=== PATIENT | female | born 1990 | race Caucasian/White ===

== ENCOUNTER 2024-05-18 22:37 | Emergency (ER) | payer OTHER, SELFPAY ==
[2024-05-18 22:41] VITALS: BP 148/112
[2024-05-18] MEDS: DELTASONE 40 MG PO (23:46)
[2024-05-18 23:47] VITALS: BP 151/84
[2024-05-18 23:48] VITALS: BP 151/84
--- NOTE | 2024-05-19 00:36 | ED.SKININJ ---
HPI-Injury
General
Chief Complaint: Skin Problem
Source: patient
Exam Limitations: none
Time Seen by Provider: 05/18/24 23:00
Nursing documentation reviewed up to this point in time: agreed with
History of Present Illness-Injury
Is this injury a work related problem?: No
Is pt an associate of [facility]/[place]?: No
Initial Injury comments:
Patient to ED wtih complaint of redness and itching to right foot. Symptoms started last PM. States she felt like she was bit by something while sitting outside. Noticed welts initially to right medial ankle and left lat foot. Today erythema and
itching have worsened. No fever/chills. Reports prior episodes of this type of reaction to insect bites.
Past History
Past History
ED Past Medical History: None
ED Past Surgical History: None
Review of Systems
Review of Systems
Allergies reviewed?: Yes
All Other Systems: ROS reviewed and negative except as documented in HPI and ROS
Constitutional: Reports no symptoms
Musculoskeletal: Reports joint swelling (swelling redness itching right foot.)
Skin: Reports other (erythema, swelling, itching to right foot.)
Psychiatric: Reports no symptoms
Skin Exam
Bite
Right Foot:
Type: insect/spider
Surrounding area around bite has: area of erythema/swelling
Distal skin color and temperature: normal-warm & good color
Normal distal neurovascular exam: Yes
Phy Exam
General Physical Exam
General Presentation: well appearing and no apparent distress
General age: appears stated age
General Skin: warm and dry
General Habitus: normal
General Mental: alert
Musculoskeletal Exam
Musculoskeletal Exam: full ROM and neuro vasc intact
Skin Exam
Skin Exam: warm/dry and other (erythema swelling and redness to right foot consistent with infammatory response from insect bite. No drainage. Neurovascularly intact)
Psychiatric Exam
Psychiatric Exam: normal mood/affect
Course
Orders/Labs/Results
Orders:
Orders
05/18/24 23:32
Prednisone [Deltasone] 40 mg PO NOW STA
Vital Signs
Initial and Last Documented VS:
Initial Vital Signs
Temp Pulse Resp BP Pulse Ox
98.3 F 94 20 148/112 98
05/18/24 22:41 05/18/24 22:41 05/18/24 22:41 05/18/24 22:41 05/18/24 22:41
Last Documented Vital Signs
Temp Pulse Resp BP Pulse Ox
98.3 F 97 20 151/84 98
05/18/24 22:41 05/18/24 23:48 05/18/24 23:48 05/18/24 23:48 05/18/24 22:41
*Critical Care Note
Total Time (30-74mins, 75-104mins- exclusive of procedures): Not Applicable
Update Note
Update Note:
Will place on prednisone taper. Continue to ice nd elevate. Given rx at her request if symtpoms do not improve over the next 2 days. SHe was given instructions on s/s to return to ED and she is agreeble to plan.
ED Attending Note
-
Portions of this chart may have been created with voice recognition software.� Occasional wrong word or��sound alike� substitutions may have occurred due to the inherent limitations of voice recognition software.
Discharge Plan
Departure
Patient Disposition: Home (Routine Discharge)
Date of Disposition: 05/18/24
Time of Disposition: 23:32
Patient with high blood pressure during this ER visit?: No
Condition: Good
Covid-19: Not Applicable
Discharge Problem:
Insect bite
Instructions: Using Cold for Pain, Insect Bites and Stings ED
Prescriptions:
New
prednisone 10 mg Tablet
See Rx Instructions .ROUTE .COMPLEX Qty: 30 0RF
Rx Instructions:
Take By Mouth:
40 mg daily x3 days, 30 mg daily x3 days,
20 mg daily x3 days, 10 mg daily x3 days.
cephalexin 500 mg capsule
500 mg PO TID 7 Days Qty: 21 0RF
No Action
prenat.vits,johnathon,[id number] Tablet
1 tab PO DAILY
Zyrtec 10 mg Capsule
10 mg PO DAILY
acetaminophen 325 mg Tablet
650 mg PO Q4HPRN PRN (Reason: mild pain) Qty: 0 0RF
ibuprofen 600 mg Tablet
600 mg PO Q6HPRN PRN (Reason: cramps) Qty: 0 0RF
Referrals:
Genesis Tovar CRNP [Family Provider] - Follow up in 2-3 days
Activity Restrictions/Additional Instructions:
Return to the emergency department for feve/chills, increasing pain, or for any further concerns.
Interventions
Interventions:
*Risk Screen - Suicide Last Done: 05/18/24 22:41
*General Assessment Last Done: 05/18/24 22:41
*Neglect/Abuse Screening Last Done: 05/18/24 22:41
*Nursing Disposition Last Done: 05/18/24 23:48
ED-Skin Assessment Last Done: 05/18/24 23:23
Discharge Date and Time
Discharge Date/Time: 05/18/24 23:49
Print Language: [place]
== END 2024-05-18 23:49 | disposition home or self-care (01) ==
LOC: EMR 22:37
PROVIDERS: EMERGENCY PHYSICIAN Emergency Medicine; FAMILY PHYSICIAN Nurse Practitioner Adult Health
DX: S90.861A Insect bite (nonvenomous), right foot, initial encounter (principal); W57.XXXA Bitten or stung by nonvenomous insect and other nonvenomous arthropods, initial encounter
CPT/HCPCS: 99283

== ENCOUNTER 2024-09-05 21:12 | Emergency (ER) | payer OTHER, SELFPAY ==
[2024-09-05 21:12] VITALS: BMI 28.0
[2024-09-05 21:17] VITALS: BP 145/100
[2024-09-05 21:36] LABS: % Basophils 0.4 % (0-2); % Eosinophils 1.4 % (0-6); % Immature Granulocytes 0.4 % (0-0.5); % Lymphocytes 25.4 % (20.5-51.1); % Monocytes 3.3 % (1.7-9.3); % Neutrophils 69.1 % (42.2-75.2); Absolute Basophils 0.1 10^3/uL (0-0.2); Absolute Eosinophils 0.3 10^3/uL (0-0.7); Absolute Immature Granulocytes 0.1 10^3/uL (0-0.05); Absolute Lymphocytes 5.2 10^3/uL (1.2-3.4); Absolute Monocytes 0.7 10^3/uL (0.1-0.6); Absolute Neutrophils 14.3 10^3/uL (1.4-6.5); Hematocrit 39.4 % (37.0-47.0); Hemoglobin 13.5 g/dL (12.0-16.0); Mean Corp Hgb Conc. 34.3 g/dL (33.0-37.0); Mean Corpuscular Hgb 30.4 pg (27.0-31.0); Mean Corpuscular Volume 88.7 fL (81.0-99.0); Mean Platelet Volume 9.2 fL (7.4-10.4); Nucleated Red Blood Cells % 0 %; Platelet Count 333 10^3/uL (130-400); Red Blood Cell Count 4.44 10^6/uL (4.20-5.40); Red Cell Dist. Width 11.6 % (11.5-14.5); White Blood Cell Count 20.6 10^3/uL (4.8-10.8)
[2024-09-05 21:44] LABS: HCG, Serum Qualitative Screen Negative
[2024-09-05 21:50] LABS: ALT (SGPT) 16 U/L (0-35); AST (SGOT) 20 U/L (14-36); Albumin 4.5 g/dl (3.5-5.0); Alkaline Phosphatase 66 U/L (38-126); Blood Urea Nitrogen 10 mg/dl (7-17); Calcium 9.7 mg/dl (8.4-10.2); Carbon Dioxide 25 mmol/L (22-30); Chloride 102 mmol/L (98-107); Glucose 103 mg/dl (70-99); Lipase 73 U/L (23-300); Sodium 137 mmol/L (135-145); Total Bilirubin 0.7 mg/dl (0.2-1.3); Total Protein 7.1 g/dl (6.3-8.2); eGFR > 60.00
[2024-09-05 22:03] LABS: Urine Albumin Negative (Neg - Trace); Urine Bilirubin Negative (Negative); Urine Character Clear (Clear); Urine Color Yellow; Urine Glucose Negative (Negative); Urine Ketone Negative (Negative); Urine Leukocyte Negative (Negative); Urine Nitrite Negative (Negative); Urine Occult Blood Trace (Negative); Urine Specific Gravity 1.025 (<1.030); Urine Urobilinogen Negative (Neg - 1+)
[2024-09-05 22:35] LABS: Urine Red Blood Cell 0-2 /HPF (0-2); Urine White Cell 0-2 /HPF (0-5)
--- NOTE | 2024-09-05 23:55 | ED.GENMED ---
History of Present Illness
<Ihsan Ayers DO - Last Filed: 09/06/24 01:20>
General
Chief Complaint: Abdominal Pain
Source: patient and spouse
Exam Limitations: none
Time Seen by Provider: 09/05/24 23:20
Nursing documentation reviewed up to this point in time: agreed with
History of Present Illness
History of Present Illness:
33-year-old female presents with right lower abdominal pain described as a pressure mildly sharp, did do a abdominal workout earlier this evening, has had a previously, states it felt like menstrual cycle pains, her cycle has not started
recently, she is hungry no prior abdominal surgery
Past History
<Ihsan Ayers DO - Last Filed: 09/06/24 01:20>
Past History
ED Past Medical History: None
ED Past Surgical History:
Social History
Tobacco: Non-smoker
Alcohol: None
Drug: None
Personal:
Living: with family
Employment: Employed
Review of Systems
<Ihsan Ayers DO - Last Filed: 09/06/24 01:20>
Review of Systems
All Other Systems: Not applicable
Constitutional: Denies fever or fatigue
EENT: Reports no symptoms
Respiratory: Reports no symptoms
Cardiac: Reports no symptoms
ABD/GI: Reports abdominal pain; Denies nausea, constipated or anorexia
: Reports no symptoms
Musculoskeletal: Reports no symptoms
Phy Exam
<Ihsan Ayers DO - Last Filed: 09/06/24 01:20>
Physical Exam
Physical Exam:
Physical Exam
General: no apparent distress, not acutely ill
Neck: No jaundice
Heart: s1/s2 regular rate and rhythm, no murmur. equal radial pulses.
Lungs: no acute respiratory distress. clear bilaterally
Abdomen: Soft, mild tenderness in the right lower
Neuro: alert and oriented. no focal neurological deficits
Skin: no rash
Psychiatric: well kept. interactive and cooperative
Extremities: no edema.
Course
<Ihsan Ayers, DO - Last Filed: 09/06/24 01:20>
Orders/Labs/Results
Orders:
Orders
09/05/24 21:21
IV Insert/Care/Rem.- Treatment PRN
Straight cath- Treatment ONCE
Test Result ONCE
09/05/24 21:27
Complete Blood Count/With Diff Urgent
Comprehensive Metabolic Panel Urgent
HCG, Serum Qualitative Screen Urgent
Comment: Notify provider if positive test present
Lipase Urgent
Urinalysis Reflex To Culture Urgent
Date Specimen was Collected: 09/05/24
Time Specimen was Collected: 21:21
Urine Microscopic Reflex Cult Urgent
09/05/24 23:34
Ketorolac [Toradol] 30 mg IV NOW STA
09/06/24 00:00
US Pelvis Only (non-obstetric) Urgent
Reason For Exam: r sided pain
09/06/24 00:20
CT Abd/Pel (IV only)-DH only Urgent
Reason For Exam: r lq pain
09/06/24 01:18
Ketorolac [Toradol] 30 mg IV NOW STA
09/06/24 02:52
Acetaminophen [Tylenol] 1,000 mg PO NOW STA
Abnormal Lab Results
09/05/24
21:27
WBC 20.6 H 10^3/uL
(4.8-10.8)
Abs Immat Gran (auto) 0.1 H 10^3/uL
(0-0.05)
Absolute Neuts (auto) 14.3 H 10^3/uL
(1.4-6.5)
Absolute Lymphs (auto) 5.2 H 10^3/uL
(1.2-3.4)
Absolute Monos (auto) 0.7 H 10^3/uL
(0.1-0.6)
Glucose 103 H mg/dl
(70-99)
Ur Occult Blood Reflex Trace A
(Negative)
09/05/24 21:27
09/05/24 21:27
Vital Signs
Initial and Last Documented VS:
Initial Vital Signs
Temp Pulse Resp BP Pulse Ox
98 F 98 20 145/100 100
09/05/24 21:17 09/05/24 21:17 09/05/24 21:17 09/05/24 21:17 09/05/24 21:17
Last Documented Vital Signs
Temp Pulse Resp BP Pulse Ox
98 F 125 27 141/84 98
09/05/24 21:17 09/06/24 01:15 09/06/24 01:15 09/06/24 01:00 09/05/24 21:17
<PHILL Valiente - Last Filed: 09/06/24 03:01>
Orders/Labs/Results
Orders:
Orders
09/05/24 21:21
IV Insert/Care/Rem.- Treatment PRN
Straight cath- Treatment ONCE
Test Result ONCE
09/05/24 21:27
Complete Blood Count/With Diff Urgent
Comprehensive Metabolic Panel Urgent
HCG, Serum Qualitative Screen Urgent
Comment: Notify provider if positive test present
Lipase Urgent
Urinalysis Reflex To Culture Urgent
Date Specimen was Collected: 09/05/24
Time Specimen was Collected: 21:21
Urine Microscopic Reflex Cult Urgent
09/05/24 23:34
Ketorolac [Toradol] 30 mg IV NOW STA
09/06/24 00:00
US Pelvis Only (non-obstetric) Urgent
Reason For Exam: r sided pain
09/06/24 00:20
CT Abd/Pel (IV only)-DH only Urgent
Reason For Exam: r lq pain
09/06/24 01:18
Ketorolac [Toradol] 30 mg IV NOW STA
09/06/24 02:52
Acetaminophen [Tylenol] 1,000 mg PO NOW STA
Abnormal Lab Results
09/05/24
21:27
WBC 20.6 H 10^3/uL
(4.8-10.8)
Abs Immat Gran (auto) 0.1 H 10^3/uL
(0-0.05)
Absolute Neuts (auto) 14.3 H 10^3/uL
(1.4-6.5)
Absolute Lymphs (auto) 5.2 H 10^3/uL
(1.2-3.4)
Absolute Monos (auto) 0.7 H 10^3/uL
(0.1-0.6)
Glucose 103 H mg/dl
(70-99)
Ur Occult Blood Reflex Trace A
(Negative)
09/05/24 21:27
09/05/24 21:27
Vital Signs
Initial and Last Documented VS:
Initial Vital Signs
Temp Pulse Resp BP Pulse Ox
98 F 98 20 145/100 100
09/05/24 21:17 09/05/24 21:17 09/05/24 21:17 09/05/24 21:17 09/05/24 21:17
Last Documented Vital Signs
Temp Pulse Resp BP Pulse Ox
98 F 125 27 141/84 98
09/05/24 21:17 09/06/24 01:15 09/06/24 01:15 09/06/24 01:00 09/05/24 21:17
<Ihsan Ayers, DO - Last Filed: 09/06/24 01:20>
MDM/Problems Addressed
Differential Diagnosis Includes:
Muscle strain overuse appendicitis ovarian pathology ectopic UTI stone
<Ihsan Ayers DO - Last Filed: 09/06/24 01:20>
*Radiology
Radiology exam reviewed: radiology read reviewed
*Pulse Oximetry
Patient hypoxic: no
*Critical Care Note
Total Time (30-74mins, 75-104mins- exclusive of procedures): Not Applicable
<PHILL Valiente - Last Filed: 09/06/24 03:01>
*Radiology
Radiology exam reviewed: radiology read reviewed (US-[facility] ha[facility]- No acute findings. Uterus appears normal. No focal uterine mass. Endometrial complex measures 4-5mm in thickness. No appreciable abnormal endometrial doppler vascularity. Bilateral
ovaries appear normal with Doppler blood flow demonstrated bilaterally. No adnexal mass. ) and all reviewed NAD by ED Provider (US cont- No pelvic free fluid)
<Ihsan Ayers DO - Last Filed: 09/06/24 01:20>
Update Note
Update Note:
Update labs noted CAT scan noted report noted no obvious pathology, patient did not want any Toradol earlier but she states that feels menstrual cramps, will proceed with ultrasound
ED Attending Note
<Ihsan Ayers DO - Last Filed: 09/06/24 01:20>
-
Portions of this chart may have been created with voice recognition software.� Occasional wrong word or��sound alike� substitutions may have occurred due to the inherent limitations of voice recognition software.
Discharge Plan
Departure
Patient Disposition: Home (Routine Discharge)
Date of Disposition: 09/06/24
Time of Disposition: 02:55
Patient with high blood pressure during this ER visit?: No
Condition: Good
Covid-19: Not Applicable
Discharge Problem:
Abdominal pain
Instructions: Abdominal Pain
Prescriptions:
New
ibuprofen 600 mg tablet
600 mg PO Q8H PRN (Reason: Pain) Qty: 20 0RF
No Action
prenat.vits,johnathon,[id number] Tablet
1 tab PO DAILY
Zyrtec 10 mg Capsule
10 mg PO DAILY
acetaminophen 325 mg Tablet
650 mg PO Q4HPRN PRN (Reason: mild pain) Qty: 0 0RF
ibuprofen 600 mg Tablet
600 mg PO Q6HPRN PRN (Reason: cramps) Qty: 0 0RF
prednisone 10 mg Tablet
See Rx Instructions .ROUTE .COMPLEX Qty: 30 0RF
Rx Instructions:
Take By Mouth:
40 mg daily x3 days, 30 mg daily x3 days,
20 mg daily x3 days, 10 mg daily x3 days.
cephalexin 500 mg capsule
500 mg PO TID 7 Days Qty: 21 0RF
Referrals:
Genesis Tovar CRNP [Family Provider] -
Interventions
Interventions:
*Risk Screen - Suicide Last Done: 09/05/24 21:17
*General Assessment Last Done: 09/05/24 21:17
*Neglect/Abuse Screening Last Done: 09/05/24 21:17
ED- Fall Risk Assessment Last Done: 09/05/24 21:17
*ED COVID-19 Vaccine History Last Done: 09/05/24 21:17
EM-Jufubd-Rdjwyxtnkr Assessment Last Done: 09/06/24 00:10
Discharge Date and Time
Print Language: LITHUANIAN
[2024-09-06 00:06] VITALS: BP 151/100
[2024-09-06 01:00] VITALS: BP 141/84
[2024-09-06] MEDS: TORADOL 30 MG IV (01:25)
[2024-09-06 02:00] VITALS: BP 131/86
[2024-09-06 02:31] VITALS: BP 139/93
[2024-09-06] MEDS: TYLENOL 1000 MG PO (02:59)
[2024-09-06 03:00] VITALS: BP 126/76
== END 2024-09-06 03:20 | disposition home or self-care (01) ==
LOC: EMR 21:12
PROVIDERS: Emergency Medicine; EMERGENCY PHYSICIAN Emergency Medicine; FAMILY PHYSICIAN Nurse Practitioner Adult Health
DX: R10.31 Right lower quadrant pain (principal)
CPT/HCPCS: 99285; 96374; 74177; 76856; 80053; 81003; 81015; 83690; 84703; 85025; Q9967

== ENCOUNTER 2025-03-20 13:04 | Outpatient (RCR) | payer OTHER, SELFPAY | END 2025-03-20 23:59 | disposition home or self-care (01) | LOC: RPT 13:04 | PROVIDERS: ATTENDING PHYSICIAN Obstetrics & Gynecology; FAMILY PHYSICIAN Nurse Practitioner Adult Health | DX: N39.3 Stress incontinence (female) (male) (principal); Z73.6 Limitation of activities due to disability; M62.81 Muscle weakness (generalized) | CPT/HCPCS: 97110; 97161; 97530 ==